=== PATIENT | female | born 1955 | race Caucasian/White ===

== ENCOUNTER → 2019-08-12 12:43 | Outpatient (BNVA) | payer MEDICARE, SELFPAY | PROVIDERS: Family Provider Family Medicine; PCP Family Medicine; Visit Provider Nurse Practitioner Psychiatric/Mental Health | DX: F33.2 Major depressive disorder, recurrent severe without psychotic features (principal); F41.1 Generalized anxiety disorder; M79.7 Fibromyalgia | CPT/HCPCS: 99213 ==

== ENCOUNTER 2019-08-26 16:17 | Emergency (ER) | payer MEDICARE, SELFPAY ==
[2019-08-26 17:01] VITALS: BP 156/86; PULSE 63; RESP 16; TEMP 36.5; O2SAT 98; BMI 32.4
--- NOTE | 2019-08-26 17:07 | PC.NURSE ---
Pt seated in waiting area at this time. Will continue to monitor.
[2019-08-26 19:48] LABS: Basophils # 0.1 10^3/uL (0.0-0.1); Basophils % 0.7 %; Eosinophils # 0.3 10^3/uL (0.0-0.8); Eosinophils % 3.3 %; Hematocrit 45.8 % (37.0-47.0); Hemoglobin 14.7 g/dL (11.5-15.3); Lymphocytes # 2.3 10^3/uL (0.8-4.8); Mean Corpuscular HGB Conc 32.1 g/dL (30.0-36.0); Mean Corpuscular Hemoglobin 26.6 pg (28.0-34.0); Monocytes # 0.5 10^3/uL (0.2-0.9); Monocytes % 6.4 %; Neutrophils # 4.4 10^3/uL (1.8-7.7); Neutrophils % 58.3 %; Nucleated Red Blood Cells % 0 %; Platelet Count 287 10^3/cmm (130-400); Red Blood Count 5.52 10^6/uL (4.1-5.3); Red Cell Distribution Width 12.7 % (12.1-15.1); White Blood Count 7.5 10^3/uL (4.0-10.0)
--- NOTE | 2019-08-26 19:55 | W.ED.GENADLT ---
HPI - General Adult General: Chief complaint: General Medical Stated complaint: multiple complaints Time Seen by Provider: 08/26/19 19:45 History of Present Illness: HPI narrative: Patient is a 64-year-old female who comes in the ED after having an episode today where her legs gave out and she fell to the floor. She denies any pain or injury after fall but for an hour after the fall she was sweating profusely. Denies any head trauma or loss of consciousness. Stated she had a little bit of numbness in her left leg. Denies any chest pain or shortness of breath. Currently here in the ED she is having no symptoms. Denies vision changes, Headache or weakness to extremities. She does say the last 2 days when she closes her eyes she described feeling like she is bobbing on the ocean. Denies abdominal pain, nausea, vomiting, bladder symptoms, or blood in stool or blood in the urine. She does state she chronically deals with diarrhea and constipation. Review of Systems General: Reports: 10 or more systems reviewed and unremarkable except in HPI and below PFSH ED PFSH: Statuses (acute, chronic, etc) shown below reflect problem list status as previously entered and may not be historically accurate Medical History Fibromyalgia (Acute) Generalized anxiety disorder (Acute) History of fibromyalgia (Acute) History of uterine cancer (Acute) Major depressive disorder, recurrent severe without psychotic features (Acute) Surgical History History of hysterectomy (Acute) Social History Smoking and tobacco status: former smoker Physical Exam Const: COMMON NORMALS: oriented x3 HENMT: COMMON NORMALS: normocephalic HEAD & SCALP: normocephalic MOUTH: oral and palatal mucosa normal THROAT: posterior oropharynx normal and uvula midline Neck/C-Spine: COMMON NORMALS: supple GENERAL: Yes normal visual inspection Resp: COMMON NORMALS: normal respiratory effort, no retractions, no use of accessory muscles and clear to auscultation bilaterally AUSCULTATION: clear to auscultation bilaterally Cardio: COMMON NORMALS: regular rate, regular rhythm, S1 normal heart sound, S2 normal heart sound, no gallops, no clicks, no murmurs and peripheral pulses 2+ throughout RATE: regular rate RHYTHM: regular rhythm HEART SOUNDS: S1 normal and S2 normal PERIPHERAL PULSES: pulses 2+ throughout GI: COMMON NORMALS: normal to inspection, nondistended, normoactive bowel sounds, soft to palpation, non-tender and no masses PALPATION: Yes soft : COMMON NORMALS: Yes no CVA tenderness BLADDER/KIDNEY EXAM: Yes no CVA tenderness Back/Pelvis: COMMON NORMALS: no CVA tenderness Extremity: COMMON NORMALS: normal to inspection Neuro: COMMON NORMALS: oriented x3, CN's II-XII intact bilaterally, moves all extremities, no focal motor deficits and no sensory deficits noted SENSORY EXAM: Yes extremities (intact) MOTOR EXAM: strength 5/5 throughout Skin: COMMON NORMALS: no rashes or lesions noted GENERAL SKIN EXAM: no rashes or lesions noted Course Vital Signs: Vital signs: Vital Signs Temperature 97.7 F 08/26/19 17:01 Pulse Rate 59 L 08/27/19 01:38 Respiratory Rate 16 08/27/19 01:38 Blood Pressure 172/67 08/27/19 01:38 Pulse Oximetry 94 08/27/19 01:38 1 I was in the room patient had a blood pressure of 168/95. This blood pressure was taken around 12 am. [facility] - General Adult Lab Data: Attestation: I reviewed the patient's lab results. Labs: Lab Results 08/26/19 08/26/19 08/26/19 Range/Units 19:25 19:25 19:25 WBC 7.5 (4.0-10.0) 10^3/ uL RBC 5.52 H (4.1-5.3) 10^6/u L Hgb 14.7 (11.5-15.3) g/dL Hct 45.8 (37.0-47.0) % MCV 83.0 (81-99) fL MCH 26.6 L (28.0-34.0) pg MCHC 32.1 (30.0-36.0) g/dL RDW 12.7 (12.1-15.1) % Plt Count 287 (130-400) 10^3/c mm MPV 11.0 H (7.4-10.4) fL Neut % (Auto) 58.3 % Lymph % (Auto) 31.0 % [place] % (Auto) 6.4 % Eos % (Auto) 3.3 % Baso % (Auto) 0.7 % Neut # (Auto) 4.4 (1.8-7.7) 10^3/u L Lymph # (Auto) 2.3 (0.8-4.8) 10^3/u L [place] # (Auto) 0.5 (0.2-0.9) 10^3/u L Eos # (Auto) 0.3 (0.0-0.8) 10^3/u L Baso # (Auto) 0.1 (0.0-0.1) 10^3/u L Nucleated RBC % (a uto) 0 % Nucleated RBCs # 0.0 /100WBC Sodium 140 (136-145) mmol/L Potassium 4.3 (3.5-5.1) mmol/L Chloride 102 (98-107) mmol/L Carbon Dioxide 28 (22-29) mmol/L Anion Gap 14.3 (5-19) BUN 12 (8-23) mg/dL Creatinine 1.2 H (0.5-0.9) mg/dL GFR Calculation 45.4 L (90-130) mL/min Glucose 133 H (74-106) mg/dL Calcium 10.3 (8.5-10.5) mg/dL Total Bilirubin 0.2 (0.15-1.2) mg/dL AST 27 (0-32) U/L ALT 34 H (0-33) U/L Alkaline Phosphata se 105 (35-105) IU/L Troponin T Baselin e 9 (0-10) ng/mL Troponin T 120 Min [place] (0-10) ng/mL Delta Troponin T (0-10) ABS# Total Protein 7.6 (6.6-8.7) g/dL Albumin 4.6 (3.5-5.2) g/dL Globulin 3.0 (1.3-4.6) g/dL Urine Color (Yellow) Urine Appearance (CLEAR) Urine pH (5-7) Ur Specific Gravit y (1.005-1.030) Urine Protein (Negative) Urine Glucose (UA) (Normal) Urine Ketones (Negative) Urine Occult Blood (Negative) Urine Nitrate (Negative) Urine Bilirubin (NEGATIVE) Prot Sulfosalicyli c Acd Urine Urobilinogen (Negative) mg/dL Ur Leukocyte Viki ase (Negative) 08/26/19 08/26/19 Range/Units 22:54 23:50 WBC (4.0-10.0) 10^3/ uL RBC (4.1-5.3) 10^6/u L Hgb (11.5-15.3) g/dL Hct (37.0-47.0) % MCV (81-99) fL MCH (28.0-34.0) pg MCHC (30.0-36.0) g/dL RDW (12.1-15.1) % Plt Count (130-400) 10^3/c mm MPV (7.4-10.4) fL Neut % (Auto) % Lymph % (Auto) % [place] % (Auto) % Eos % (Auto) % Baso % (Auto) % Neut # (Auto) (1.8-7.7) 10^3/u L Lymph # (Auto) (0.8-4.8) 10^3/u L [place] # (Auto) (0.2-0.9) 10^3/u L Eos # (Auto) (0.0-0.8) 10^3/u L Baso # (Auto) (0.0-0.1) 10^3/u L Nucleated RBC % (a uto) % Nucleated RBCs # /100WBC Sodium (136-145) mmol/L Potassium (3.5-5.1) mmol/L Chloride (98-107) mmol/L Carbon Dioxide (22-29) mmol/L Anion Gap (5-19) BUN (8-23) mg/dL Creatinine (0.5-0.9) mg/dL GFR Calculation (90-130) mL/min Glucose (74-106) mg/dL Calcium (8.5-10.5) mg/dL Total Bilirubin (0.15-1.2) mg/dL AST (0-32) U/L ALT (0-33) U/L Alkaline Phosphata se (35-105) IU/L Troponin T Baselin e (0-10) ng/mL Troponin T 120 Min [place] 7.84 (0-10) ng/mL Delta Troponin T -1.16 L (0-10) ABS# Total Protein (6.6-8.7) g/dL Albumin (3.5-5.2) g/dL Globulin (1.3-4.6) g/dL Urine Color Yellow (Yellow) Urine Appearance Clear (CLEAR) Urine pH 7 (5-7) Ur Specific Gravit y 1.010 (1.005-1.030) Urine Protein Neg (Negative) Urine Glucose (UA) Norm (Normal) Urine Ketones Negative (Negative) Urine Occult Blood Neg (Negative) Urine Nitrate Negative (Negative) Urine Bilirubin Neg (NEGATIVE) Prot Sulfosalicyli c Acd Negative Urine Urobilinogen Norm (Negative) mg/dL Ur Leukocyte Viki ase Negative (Negative) Imaging Data^: CT Head: Attestation: I personally reviewed and interpreted this imaging study as follows: Radiologist's impression: [address] [address] [address] Scan Report Signed Patient: Oneyda Carter Unit #: [id number] : 1955 Age/Sex: 64 / F ADM Date: 08/26/19 Loc: ER Room/Bed: Attending Dr: Ordering Provider/Ordering MD: Tahir Jiang Date of Service: 08/26/19 Procedure(s): CT head wo con* [id number] Accession Number(s): [id number] Report Number: [id number] PROCEDURE INFORMATION: Exam: CT Head Without Contrast Exam date and time: 08/26/2019 8:36 PM Age: 64 years old Clinical indication: Dizziness; Additional info: [place] BP with numbness TECHNIQUE: Imaging protocol: Computed tomography of the head without contrast. Total DLP: 753.53 mGy-cm Radiation optimization: All CT scans at this facility use at least one of these dose optimization techniques: automated exposure control; mA and/or kV adjustment per patient size (includes targeted exams where dose is matched to clinical indication); or iterative reconstruction. COMPARISON: CT head wo con* [id number] 05/04/2015 12:47 PM FINDINGS: Brain: Normal. No hemorrhage. Unremarkable white matter. No mass effect. Midline shift: There is no shift of midline structures. Ventricles: Normal. No ventriculomegaly. Bones/joints: Unremarkable. No acute fracture. Sinuses: Visualized sinuses are unremarkable. No fluid levels. Mastoid air cells: Visualized mastoid air cells are well aerated. Soft tissues: There is some focal scarring in the occipital scalp. CT/CT head wo con* [id number] IMPRESSION: No acute intracranial abnormality. Radiation Dose CTDIVOL = (mGy): DLP = 753.53 (mGy-cm) Dictated By: Nate Fernandez Signed By: Nate Fernandez Signed Date/Time: 08/26/192112 DD/ 11 EKG Data^: EKG 1: Attestation: I personally reviewed and interpreted this EKG as follows: EKG interpretation date: 08/26/19 Interpretation: Sinus bradycardia, bpm of [address] elevation or depression, P waves present Computer generated interpretation: Head CT 08/26/19 20:33 IMPRESSION: No acute intracranial abnormality. Radiation Dose CTDIVOL = (mGy): DLP = 753.53 (mGy-cm) EKG 2: Attestation: I personally reviewed and interpreted this EKG as follows: EKG interpretation date: 08/26/19 Interpretation: Sinus rhythm, bpm of 62, no ST elevation or depression, P waves present. Computer generated interpretation: Head CT 08/26/19 20:33 IMPRESSION: No acute intracranial abnormality. Radiation Dose CTDIVOL = (mGy): DLP = 753.53 (mGy-cm) Discharge Plan Discharge Patient Disposition: Home, Self-Care Clinical Impression: Hypertensive urgency Condition: Stable Prescriptions: No Action aspirin 81 mg tablet,chewable 81 mg PO ONCE RF: 0 albuterol sulfate [Ventolin HFA] 90 mcg/actuation HFA aerosol inhaler 2 puff INHALATION BID PRNRF: 0 atenolol 25 mg tablet 12.5 mg PO BID RF: 0 fluoxetine [Prozac] 40 mg capsule 80 mg PO QAM Qty: 30 RF: 3 hydroxyzine HCl 50 mg tablet 50 mg PO BID PRN (Reason: anxiety) Qty: 60 RF: 3 melatonin 3 mg capsule 6 mg PO .bedtime Qty: 60 RF: 3 Discharge Orders: Discharge Order (Routine); Ordered 08/27/19 Ordered By: Tahir Jiang Referrals: Mallory Manley DO [Primary Care Provider] - Discharge Diet: Regular Discharge Activity: Resume usual activity Activity Restrictions/Additional Instructions: Follow-up with your PCP within the next 7 days for reevaluation. Discuss blood pressure management with PCP. Return to ED if you have any symptoms of high blood pressure and numbness/Tingling or weakness to extremities. Also return to the ED if you have any episodes of profuse sweating and shortness of breath and/or chest pain. Discharge Date/Time: 08/27/19 01:41 Coding Level of Care Code ED Drill Sergeant for Anshu Galdamez
[2019-08-26 20:07] VITALS: BP 200/83; PULSE 61; RESP 14; O2SAT 98
[2019-08-26 20:12] LABS: Alanine Aminotransferase 34 U/L (0-33); Albumin Level 4.6 g/dL (3.5-5.2); Alkaline Phosphatase 105 IU/L (35-105); Anion Gap 14.3 (5-19); Aspartate Amino Transferase 27 U/L (0-32); Blood Urea Nitrogen 12 mg/dL (8-23); Calcium 10.3 mg/dL (8.5-10.5); Carbon Dioxide 28 mmol/L (22-29); Chloride 102 mmol/L (98-107); Glomerular Filtration Rate 45.4 mL/min (90-130); Glucose 133 mg/dL (74-106); Potassium 4.3 mmol/L (3.5-5.1); Sodium 140 mmol/L (136-145); Total Bilirubin 0.2 mg/dL (0.15-1.2); Total Protein 7.6 g/dL (6.6-8.7)
--- NOTE | 2019-08-26 20:12 | PC.NURSE ---
Patient Assessment Patient reports her legs becoming weak and falling this afternoon. Patient states she suddenly felt shaky and felt like her heart was beating fast but denies any kind of chest pain or other symptoms. Patient reports some pain in her legs and feet at this time. Patient denies being a known diabetic at this time. Patient denies any other weakness, dizziness, headaches or tingling at this time. Patient facial symmetry. Patient denies taking any daily blood pressure medication. Patient reports having frequent issues with left ear.
--- NOTE | 2019-08-26 20:33 | CTR_ITS ---
PROCEDURE INFORMATION: Exam: CT Head Without Contrast Exam date and time: 08/26/2019 8:36 PM Age: 64 years old Clinical indication: Dizziness; Additional info: [place] BP with numbness TECHNIQUE: Imaging protocol: Computed tomography of the head without contrast. Total DLP: 753.53 mGy-cm Radiation optimization: All CT scans at this facility use at least one of these dose optimization techniques: automated exposure control; mA and/or kV adjustment per patient size (includes targeted exams where dose is matched to clinical indication); or iterative reconstruction. COMPARISON: CT head wo con* [id number] 05/04/2015 12:47 PM FINDINGS: Brain: Normal. No hemorrhage. Unremarkable white matter. No mass effect. Midline shift: There is no shift of midline structures. Ventricles: Normal. No ventriculomegaly. Bones/joints: Unremarkable. No acute fracture. Sinuses: Visualized sinuses are unremarkable. No fluid levels. Mastoid air cells: Visualized mastoid air cells are well aerated. Soft tissues: There is some focal scarring in the occipital scalp. CT/CT head wo con* [id number] IMPRESSION: No acute intracranial abnormality. Radiation Dose CTDIVOL = (mGy): DLP = 753.53 (mGy-cm)
--- NOTE | 2019-08-26 20:53 | ECG_ITS ---
Measurements Intervals [place] Rate: 58 P: 30 MT: 181 QRS: 61 QRSD: 78 T: 51 QT: 465 QTc: 458 SINUS BRADYCARDIA No previous ECG available for comparison Electronically Signed On 08-27-2019 20:11:33 DATA ENTRY ANALYST by Michelle Crowder M.D. [id number]
[2019-08-26 21:52] LABS: Troponin(5th) Baseline 9 ng/mL (0-10)
[2019-08-26] MEDS: sodium chloride 0.9% 1,000 ML 999 ML IV (22:10)
--- NOTE | 2019-08-26 22:53 | ECG_ITS ---
Measurements Intervals [place] Rate: 62 P: 52 IN: 177 QRS: 62 QRSD: 81 T: 52 QT: 453 QTc: 461 SINUS RHYTHM No previous ECG available for comparison Electronically Signed On 08-27-2019 20:15:54 PHYSIOTHERAPY ASSISTANT by Michelle Crowder M.D. [id number]
[2019-08-26 23:18] LABS: Troponin 5 2HR 7.84 ng/mL (0-10)
[2019-08-26 23:52] LABS: Troponin 5 2HR Delta -1.16 ABS# (0-10)
[2019-08-27 00:55] LABS: Bilirubin Urine Neg (NEGATIVE); Blood Urine Neg (Negative); Glucose Urine UA Norm (Normal); Ketones Urine Negative (Negative); Leukocyte Esterase Urine Negative (Negative); Nitrate Urine Negative (Negative); Protein Urine Neg (Negative); Sulfosalicylic Acid Urine Negative; Urine Appearance Clear (CLEAR); Urine Color Yellow (Yellow); Urobilinogen Urine Norm (Negative); pH Urine 7 (5-7)
[2019-08-27 00:57] LABS: Add Urine Culture? No
[2019-08-27 01:38] VITALS: BP 172/67; PULSE 59; RESP 16; O2SAT 94
== END 2019-08-27 01:41 | disposition home or self-care (01) ==
PROVIDERS: Family Medicine; Emergency Provider Physician Assistant; Family Provider Family Medicine; PCP Family Medicine
DX: I16.0 Hypertensive urgency (principal); Z87.891 Personal history of nicotine dependence
CPT/HCPCS: 36415; 70450; 80053; 81001; 84484; 85025; 93005; 96360; 99282; 99283; J7030

== ENCOUNTER → 2019-09-10 13:57 | Outpatient (BNVA) | payer MEDICARE, SELFPAY | PROVIDERS: Family Provider Family Medicine; PCP Family Medicine; Visit Provider Family Medicine | DX: I10 Essential (primary) hypertension (principal); R73.9 Hyperglycemia, unspecified | CPT/HCPCS: 80053; 80061; 82044; 83036; 84443; 85025 ==

== ENCOUNTER → 2019-10-09 13:27 | Outpatient (BNVA) | payer MEDICARE, SELFPAY | PROVIDERS: Family Provider Family Medicine; PCP Family Medicine; Visit Provider Family Medicine | DX: E78.5 Hyperlipidemia, unspecified (principal); I10 Essential (primary) hypertension | CPT/HCPCS: 80053 ==

== ENCOUNTER → 2019-11-18 08:18 | Outpatient (BNVA) | payer MEDICARE, SELFPAY | PROVIDERS: Family Provider Family Medicine; PCP Family Medicine; Visit Provider Nurse Practitioner Psychiatric/Mental Health | DX: F33.2 Major depressive disorder, recurrent severe without psychotic features (principal); F41.1 Generalized anxiety disorder; M79.7 Fibromyalgia | CPT/HCPCS: 99213 ==

== ENCOUNTER → 2020-02-10 07:43 | Outpatient (BNVA) | payer MEDICARE, SELFPAY | PROVIDERS: Family Provider Family Medicine; PCP Family Medicine; Visit Provider Nurse Practitioner Psychiatric/Mental Health | DX: F33.2 Major depressive disorder, recurrent severe without psychotic features (principal); F41.1 Generalized anxiety disorder; M79.7 Fibromyalgia; Z79.899 Other long term (current) drug therapy | CPT/HCPCS: 99213 ==

== ENCOUNTER → 2020-02-11 11:29 | Outpatient (BNVA) | payer MEDICARE, SELFPAY | PROVIDERS: Family Provider Family Medicine; PCP Family Medicine; Visit Provider Family Medicine | DX: I10 Essential (primary) hypertension (principal); R73.03 Prediabetes | CPT/HCPCS: 80053; 83036 ==

== ENCOUNTER 2020-07-13 10:59 | Outpatient (CLI) | payer MEDICARE, SELFPAY ==
--- NOTE | 2020-07-13 11:21 | US_ITS ---
WS: [id number] RENAL ULTRASOUND HISTORY: CHRONIC KIDNEY DZ STAGE 3 COMPARISON: None available. TECHNIQUE: 2-D and color Doppler imaging of the kidney submitted. Right kidney: 9.4 cm x 4.6 cm x 4.5 cm. Normal echogenicity with no hydronephrosis or mass. Left kidney: 10.4 cm x 5.3 cm x 4.2 cm. Normal echogenicity with no hydronephrosis or mass. Aorta: Normal. Urinary Bladder: Normal distention. US/US renal BI* [id number] IMPRESSION: Normal renal ultrasound.
== END 2020-07-13 11:00 | disposition home or self-care (01) ==
PROVIDERS: PCP Family Medicine; Visit Provider Internal Medicine Nephrology
DX: N18.31 Chronic kidney disease, stage 3a (principal)
CPT/HCPCS: 76770

== ENCOUNTER → 2020-09-17 14:59 | Outpatient (BNVA) | payer MEDICARE, SELFPAY | PROVIDERS: PCP Family Medicine; Visit Provider Family Medicine | DX: N18.30 Chronic kidney disease, stage 3 unspecified (principal); I10 Essential (primary) hypertension; E78.5 Hyperlipidemia, unspecified | CPT/HCPCS: 80069; 82043; 85007; 85027 ==

== ENCOUNTER → 2020-12-29 08:45 | Outpatient (BNVA) | payer MEDICARE, SELFPAY | PROVIDERS: PCP Family Medicine; Visit Provider Nurse Practitioner Psychiatric/Mental Health | DX: F33.2 Major depressive disorder, recurrent severe without psychotic features (principal); F41.1 Generalized anxiety disorder; M79.7 Fibromyalgia | CPT/HCPCS: 99213 ==

== ENCOUNTER → 2021-05-31 14:41 | Outpatient (BNVA) | payer MEDICARE, SELFPAY | PROVIDERS: PCP Family Medicine; Visit Provider Family Medicine | DX: E78.5 Hyperlipidemia, unspecified (principal); I10 Essential (primary) hypertension; R73.03 Prediabetes | CPT/HCPCS: 80053; 80061; 82043; 83036; 85025 ==

== ENCOUNTER → 2021-06-24 12:56 | Outpatient (BNVA) | payer MEDICARE, SELFPAY | PROVIDERS: PCP Family Medicine; Visit Provider Nurse Practitioner Psychiatric/Mental Health | DX: F33.2 Major depressive disorder, recurrent severe without psychotic features (principal); F41.1 Generalized anxiety disorder; M79.7 Fibromyalgia | CPT/HCPCS: 99214 ==

== ENCOUNTER → 2021-11-22 13:45 | Outpatient (BNVA) | payer MEDICARE, SELFPAY | PROVIDERS: PCP Family Medicine; Visit Provider Nurse Practitioner Psychiatric/Mental Health | DX: F33.2 Major depressive disorder, recurrent severe without psychotic features (principal); F41.1 Generalized anxiety disorder; M79.7 Fibromyalgia | CPT/HCPCS: 99214 ==

== ENCOUNTER 2024-02-04 19:12 | Emergency (ER) | payer MEDICARE, SELFPAY ==
[2024-02-04 19:21] VITALS: BP 154/80; PULSE 85; RESP 16; TEMP 37.4; O2SAT 95; BMI 29.9
[2024-02-04 19:33] VITALS: BP 150/69; PULSE 83; RESP 18; O2SAT 98
[2024-02-04 19:56] LABS: SARS Covid-2 Antigen negative (Negative)
--- NOTE | 2024-02-04 19:58 | W.ED.FEVER ---
HPI - Fever General: Chief Complaint: Fever Stated Complaint: Body aches, Headaces,Fever Time Seen by Provider: 02/04/24 19:28 History of Present Illness: 69-year-old female with a headache, fever, aches and chills for the last day or so. She has had a cough as well. No sore throat. No chest pain. No swelling of the legs. No frequency or dysuria. Associated symptoms: Deny abdominal pain, chest pain, confusion, diarrhea, nausea or vomiting Review of Systems Eyes: Denies: change in vision Card: Denies: chest pain or palpitations Resp: Denies: dyspnea or wheezing GI: Denies: abdominal pain, nausea, vomiting, diarrhea or hematochezia : Denies: difficulty voiding Skin/Breast: Denies: rash Neuro: Denies: weakness in extremities, dizziness or confusion PFSH ED PFSH: Medical History (Updated 02/05/24 @ 00:25 by Kelechi Hawthorne DO) Dyslipidemia Benign essential HTN COPD (chronic obstructive pulmonary disease) Fibromyalgia Generalized anxiety disorder Major depressive disorder, recurrent severe without psychotic features History of fibromyalgia History of uterine cancer Surgical History History of hysterectomy Family History Other CAD (coronary artery disease) Hypertension Social History Smoking and tobacco/nicotine status: never used tobacco/nicotine Alcohol intake: never Substance/Drug Use: never Physical Exam Const: COMMON NORMALS: no acute distress GENERAL APPEARANCE: cooperative and ill appearing (Mildly); not frail appearing HENMT: COMMON NORMALS: normocephalic, atraumatic and Normal external nose present HEAD & SCALP: normocephalic and atraumatic FACE & SINUS: normal facial exam and face symmetric NOSE: Normal external nose present Eye: COMMON NORMALS: Equal, round and reactive pupils present and EOMs intact bilaterally PUPIL: Yes Equal, round and reactive pupils present Neck/C-Spine: GENERAL: Yes trachea midline Chest: CHEST: Yes Symmetrical chest wall rise Resp: COMMON NORMALS: normal respiratory effort, No retractions, No use of accessory muscles and clear to auscultation bilaterally AUSCULTATION: clear to auscultation bilaterally Cardio: COMMON NORMALS: regular rate and regular rhythm RATE: regular rate RHYTHM: regular rhythm GI: COMMON NORMALS: Normal to inspection, nondistended, normoactive bowel sounds present Extremity: COMMON NORMALS: no pedal edema Neuro: RACHNA COMA SCALE: document GCS findings [place] coma scale eye opening: Spontaneous Rachna coma scale verbal response: Orientated [place] coma scale motor response: Obey commands Rachna coma scale total score: 15 SENSORY EXAM: Yes extremities (intact) Psych: COMMON NORMALS: speech normal SPEECH: Yes normal speech Skin: COMMON NORMALS: no rashes or lesions noted GENERAL SKIN EXAM: no rashes or lesions noted Course Vital Signs: Vital signs: Vital Signs Temperature 99.3 F 02/04/24 19:21 Pulse Rate 68 02/05/24 01:41 Respiratory Rate 16 02/05/24 01:41 Blood Pressure 130/57 02/05/24 01:41 Pulse Oximetry 94 02/05/24 01:41 Oxygen Delivery Me thod Nasal Cannula 02/05/24 00:00 Oxygen Flow Rate 3 02/05/24 00:00 MDM - Fever Medical Decision Making 69-year-old female presenting with a temperature. 99.3. She is slightly hypertensive. Other vital signs are stable. CBC is normal. BMP is normal. Lactic acid is normal. Chest x-ray is negative. She is negative for COVID-19. Urinalysis is pending. Head CT, is ordered, as she is a bit unsteady on her feet after getting up despite fluid infusion. Head CT is negative. Urinalysis reveals a urinary tract infection that is significant. Likely her source. She is given 500 mg of IV Levaquin. Her headache is improving after hydration. Temperature is staying down. She was counseled on diagnosis. She will be allowed discharge after antibiotic infusion. Lab Data 02/04/24 19:54 02/04/24 19:54 Radiology Impressions Chest X-Ray 02/04/24 21:08 IMPRESSION: 1. No acute cardiopulmonary abnormality. Head CT 02/04/24 22:25 IMPRESSION: 1. No acute intracranial abnormality. Laboratory Results WBC 6.59 10^3/uL (3.29-11.43) 02/04/24 19:54 RBC 5.46 10^6/uL (3.85-5.65) 02/04/24 19:54 Hgb 15.40 g/dL (11.27-16.99) 02/04/24 19:54 Hct 46.7 % (36-47) 02/04/24 19:54 MCV 85.5 fl (85-98) 02/04/24 19:54 MCH 28.2 pg (27-33) 02/04/24 19:54 MCHC 33.0 g/dL (30-55) 02/04/24 19:54 RDW 12.3 % (12.1-15.1) 02/04/24 19:54 Plt Count 288 10^3/cmm (157-399) 02/04/24 19:54 MPV 11.1 fL (7.4-10.4) H 02/04/24 19:54 Neut % (Auto) 72.1 % 02/04/24 19:54 Lymph % (Auto) 12.7 % 02/04/24 19:54 [place] % (Auto) 8.3 % 02/04/24 19:54 Eos % (Auto) 5.8 % 02/04/24 19:54 Baso % (Auto) 0.5 % 02/04/24 19:54 Neut # (Auto) 4.75 10^3/uL (1.8-7.7) 02/04/24 19:54 Lymph # (Auto) 0.8 10^3/uL (0.8-4.8) 02/04/24 19:54 [place] # (Auto) 0.6 10^3/uL (0.2-0.9) 02/04/24 19:54 Eos # (Auto) 0.4 10^3/uL (0.0-0.8) 02/04/24 19:54 Baso # (Auto) 0.0 10^3/uL (0.0-0.1) 02/04/24 19:54 Nucleated RBC % (auto) 0 % 02/04/24 19:54 Nucleated RBCs # 0.0 /100WBC 02/04/24 19:54 Sodium 138 mmol/L (136-145) 02/04/24 19:54 Potassium 3.9 mmol/L (3.5-5.1) 02/04/24 19:54 Chloride 103 mmol/L (98-107) 02/04/24 19:54 Carbon Dioxide 24 mmol/L (22-29) 02/04/24 19:54 Anion Gap 14.9 (5-19) 02/04/24 19:54 BUN 15 mg/dL (8-23) 02/04/24 19:54 Creatinine 1.1 mg/dL (0.5-0.9) H 02/04/24 19:54 GFR Calculation 49.4 mL/min (90-130) L 02/04/24 19:54 Glucose 123 mg/dL (65-115) H 02/04/24 19:54 Calculated Osmolality 288 mOsm/kg (285-295) 02/04/24 19:54 Lactic Acid 0.8 mmol/L (0.5-2.2) 02/04/24 19:54 Calcium 9.3 mg/dL (8.5-10.5) 02/04/24 19:54 Total Bilirubin 0.5 mg/dL (0.15-1.2) 02/04/24 19:54 AST 22 U/L (0-32) 02/04/24 19:54 ALT 34 U/L (0-33) H 02/04/24 19:54 Alkaline Phosphatase 108 U/L (35-105) H 02/04/24 19:54 Total Protein 7.1 g/dL (6.6-8.7) 02/04/24 19:54 Albumin 4.1 g/dL (3.5-5.2) 02/04/24 19:54 Globulin 3.0 g/dL (1.3-4.6) 02/04/24 19:54 Urine Color Yellow (Yellow) 02/04/24 22:28 Urine Appearance Clear (CLEAR) 02/04/24 22:28 Urine pH 7 (5-7) 02/04/24 22:28 Ur Specific [place] 1.005 (1.005-1.030) 02/04/24 22:28 Urine Protein Neg (Negative) 02/04/24 22:28 Urine Glucose (UA) Norm (Normal) 02/04/24 22:28 Urine Ketones Negative (Negative) 02/04/24 22:28 Urine Blood Neg (Negative) 02/04/24 22:28 Urine Nitrate Negative (Negative) 02/04/24 22:28 Urine Bilirubin Neg (Negative) 02/04/24 22:28 Urine Urobilinogen Neg mg/dL (Negative) 02/04/24 22:28 Ur Leukocyte Esterase 2+ (Negative) H 02/04/24 22:28 Urine RBC 0-4 /hpf (0-2) H 02/04/24 22:28 Urine WBC 15-25 /hpf (0-5) H 02/04/24 22:28 Ur Squamous Epith Cells 5-10 /hpf (0-5) H 02/04/24 22:28 Amorphous Sediment Not Reportable 02/04/24 22:28 Urine Bacteria 1+ /hpf (NONE) H 02/04/24 22:28 SARS-CoV-2 Ag (Rapid) negative (Negative) 02/04/24 19:31 All radiology interpretation(s) finalized by discharge Discharge Plan Discharge Patient Disposition: Home Clinical Impression: Urinary tract infection, Headache Condition: Stable Prescriptions: New levofloxacin 500 mg tablet 500 mg PO DAILY 7 Days Qty: 7 0RF No Action aspirin 81 mg tablet,chewable 81 mg PO ONCE albuterol sulfate [Ventolin HFA] 90 mcg/actuation HFA aerosol inhaler 2 puff INHALATION BID PRN (Reason: shortness of breath or wheezing) Qty: 8.5 3RF fluoxetine [Prozac] 40 mg capsule 80 mg PO QAM Qty: 180 2RF Rx Instructions: Take two capsules every morning diazepam [Valium] 5 mg tablet 2.5 mg PO BID PRN (Reason: anxiety) Qty: 30 2RF Rx Instructions: May take half tablet twice per day as needed for anxiety Discharge Orders: Discharge ED (Routine); Ordered 02/05/24 Ordered By: Kelechi Hawthorne Referrals: Cristal Kramer DO [Primary Care Provider] - 1-3 days Patient Instructions: Acute Headache (ED), Urinary Tract Infection in Older Adults (ED), Opioid Safety, Pain Management Activity Restrictions/Additional Instructions: Return for worsening headache despite treatment, worsening mental status, vomiting liquids or medications, fever despite 2-3 doses of antibiotics, any other concerning symptoms. Follow-up with your doctor this week. Stay hydrated. Antibiotics as directed. Coding Level of Care Code ED Edi Manager for Anshu Galdamez
[2024-02-04 20:02] LABS: Basophils % 0.5 %; Eosinophils # 0.4 10^3/uL (0.0-0.8); Eosinophils % 5.8 %; Hematocrit 46.7 % (36-47); Lymphocytes # 0.8 10^3/uL (0.8-4.8); Lymphocytes % 12.7 %; Mean Corpuscular Hemoglobin 28.2 pg (27-33); Mean Corpuscular Volume 85.5 fl (85-98); Mean Platelet Volume 11.1 fL (7.4-10.4); Monocytes # 0.6 10^3/uL (0.2-0.9); Monocytes % 8.3 %; Neutrophils # 4.75 10^3/uL (1.8-7.7); Neutrophils % 72.1 %; Nucleated Red Blood Cells % 0 %; Platelet Count 288 10^3/cmm (157-399); Red Blood Count 5.46 10^6/uL (3.85-5.65); Red Cell Distribution Width 12.3 % (12.1-15.1); White Blood Count 6.59 10^3/uL (3.29-11.43)
[2024-02-04 20:20] LABS: Alanine Aminotransferase 34 U/L (0-33); Albumin Level 4.1 g/dL (3.5-5.2); Alkaline Phosphatase 108 U/L (35-105); Anion Gap 14.9 (5-19); Aspartate Amino Transferase 22 U/L (0-32); Blood Urea Nitrogen 15 mg/dL (8-23); Calcium 9.3 mg/dL (8.5-10.5); Carbon Dioxide 24 mmol/L (22-29); Chloride 103 mmol/L (98-107); Creatinine Clr Calc Pharmacy 55.3384; Glomerular Filtration Rate 49.4 mL/min (90-130); Glucose 123 mg/dL (65-115); Lactic Sepsis W/Reflex 0.8 mmol/L (0.5-2.2); Osmolality Calculated 288 mOsm/kg (285-295); Potassium 3.9 mmol/L (3.5-5.1); Sodium 138 mmol/L (136-145); Total Bilirubin 0.5 mg/dL (0.15-1.2); Total Protein 7.1 g/dL (6.6-8.7)
[2024-02-04] MEDS: sodium chloride 0.9% 1,000 ML 999 ML IV (20:34)
[2024-02-04] MEDS: ondansetron 2 mg/ML SDV 2 mL 4 MG IVP (20:36)
[2024-02-04 20:38] VITALS: RESP 16
[2024-02-04] MEDS: ketorolac 30 mg/mL INJ IVP (20:38)
[2024-02-04] MEDS: morphine 4 mg/mL SDV 1 mL IVP (20:38)
--- NOTE | 2024-02-04 21:08 | XRR_ITS ---
PROCEDURE INFORMATION: Exam: XR Chest Exam date and time: 02/04/2024 9:16 PM Age: 69 years old Clinical indication: Cough and fever; Patient HX: Fever; Cough; Chills; Additional info: Fever chills cough TECHNIQUE: Imaging protocol: Radiologic exam of the chest. Views: 1 view. COMPARISON: No relevant prior studies available. FINDINGS: Lungs: No focal consolidation. Pleural spaces: No evidence of pneumothorax. No evidence of pleural effusion. Heart/Mediastinum: Cardiomediastinal silhouette is within normal limits. Bones/joints: No evidence of acute osseous abnormality. XR/XR chest 1V portable [id number] IMPRESSION: 1. No acute cardiopulmonary abnormality.
[2024-02-04 22:25] VITALS: BP 161/72; PULSE 71; RESP 18; O2SAT 89
--- NOTE | 2024-02-04 22:25 | CTR_ITS ---
PROCEDURE INFORMATION: Exam: CT Head Without Contrast Exam date and time: 02/04/2024 10:34 PM Age: 69 years old Clinical indication: Pain; Headache; Patient HX: Occipital TONEY with fever. Hypertensive on monitor. ; Additional info: TONEY fever TECHNIQUE: Imaging protocol: Computed tomography of the head without contrast. Radiation optimization: All CT scans at this facility use at least one of these dose optimization techniques: automated exposure control; mA and/or kV adjustment per patient size (includes targeted exams where dose is matched to clinical indication); or iterative reconstruction. COMPARISON: CT head wo con* [id number] 08/26/2019 9:03 PM RADIATION DOSE METRICS: Total DLP (mGy-cm): 974.28 FINDINGS: Brain: No evidence of intra-axial or extra-axial hemorrhage. No mass effect or midline shift. [place]-white differentiation is maintained. Basilar cisterns are patent. Cerebral ventricles: No hydrocephalus. Paranasal sinuses: The visualized paranasal sinuses are well aerated. Mastoid air cells: The visualized mastoids and middle ears are clear. Bones: Calvarium is intact. No evidence of acute fracture. Soft tissues: No gross soft tissue abnormality. CT/CT head wo con* [id number] IMPRESSION: 1. No acute intracranial abnormality.
[2024-02-04] MEDS: sodium chloride 0.9% 500 ML 999 ML IV (22:47)
[2024-02-04] MEDS: metoclopramide 5 mg/mL SDV 2 mL 10 MG IVP (22:49)
--- NOTE | 2024-02-04 22:52 | ECG_ITS ---
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 Measurements Intervals [place] Rate: 64 P: 66 VT: 184 QRS: 71 QRSD: 84 T: 70 QT: 435 QTc: 452 Interpretive Statements SINUS RHYTHM Compared to ECG 08/26/2019 22:30:25 No significant changes Electronically Signed On 02-05-2024 9:45:10 CDT by Galindo Kay M.D. [id number]
[2024-02-04 22:53] VITALS: BP 131/64; PULSE 65; RESP 18; O2SAT 94
[2024-02-04 22:57] LABS: Add Urine Microscopic? YES; Bilirubin Urine Neg (Negative); Blood Urine Neg (Negative); Glucose Urine UA Norm (Normal); Ketones Urine Negative (Negative); Leukocyte Esterase Urine 2+ (Negative); Nitrate Urine Negative (Negative); Protein Urine Neg (Negative); Specific Gravity, Urine 1.005 (1.005-1.030); Urine Appearance Clear (CLEAR); Urine Color Yellow (Yellow); Urobilinogen Urine Neg (Negative); pH Urine 7 (5-7)
[2024-02-04 22:58] LABS: Bacteria Urine 1+ /hpf; RBC Urine 0-4 /hpf (0-2); WBC Urine 15-25 /hpf (0-5)
[2024-02-04 23:00] VITALS: BP 135/64; PULSE 66; O2SAT 90
[2024-02-05] VITALS: BP 138/58; PULSE 64; O2SAT 90
[2024-02-05] MEDS: levofloxacin-dextrose 5 % 500 MG/100 ML PREMIX 100 MG IV (00:19)
[2024-02-05 01:41] VITALS: BP 130/57; PULSE 68; RESP 16; O2SAT 94
== END 2024-02-05 01:41 | disposition home or self-care (01) ==
PROVIDERS: Emergency Medicine; Emergency Provider Emergency Medicine; PCP Family Medicine
DX: R51.9 Headache, unspecified (principal); N39.0 Urinary tract infection, site not specified; Z11.52 Encounter for screening for COVID-19; E78.5 Hyperlipidemia, unspecified; I10 Essential (primary) hypertension; J44.9 Chronic obstructive pulmonary disease, unspecified; Z85.42 Personal history of malignant neoplasm of other parts of uterus
CPT/HCPCS: 36415; 70450; 71045; 80053; 81001; 83605; 85025; 87040; 87426; 93005; 96361; 96365; 96375; 99285; J1885; J1956; J2270; J2405; J2765; J7030; J7040

== ENCOUNTER 2024-07-18 13:41 | Emergency (ER) | payer MEDICARE, SELFPAY ==
--- NOTE | 2024-07-18 13:46 | ECG_ITS ---
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 Measurements Intervals [place] Rate: 75 P: 39 SC: 167 QRS: 47 QRSD: 75 T: 44 QT: 411 QTc: 461 Interpretive Statements SINUS RHYTHM Compared to ECG 02/04/2024 22:52:07 No significant changes Electronically Signed On 07-19-2024 18:32:25 SLIDE FASTENERS INSPECTOR by Galindo Kay M.D. [id number]
[2024-07-18 13:49] VITALS: BP 154/70; PULSE 84; RESP 18; TEMP 36.7; O2SAT 100; BMI 29.7
--- NOTE | 2024-07-18 13:49 | XRR_ITS ---
PROCEDURE INFORMATION: Exam: XR Chest Exam date and time: 07/18/2024 1:59 PM Age: 69 years old Clinical indication: Shortness of breath; Additional info: SOB TECHNIQUE: Imaging protocol: Radiologic exam of the chest. Views: 1 view. COMPARISON: CR (CHEST, ) 02/04/2024 9:16 PM FINDINGS: Lungs: Unremarkable. No consolidation. Pleural spaces: Unremarkable. No pleural effusion. No pneumothorax. Heart/Mediastinum: Unremarkable. No cardiomegaly. Bones/joints: Unremarkable. XR/XR chest 1V portable [id number] IMPRESSION: No acute findings.
[2024-07-18 13:56] VITALS: BP 154/70; PULSE 84; RESP 18; TEMP 36.7; O2SAT 100
[2024-07-18 14:08] LABS: Basophils # 0.1 10^3/uL (0.0-0.1); Basophils % 0.5 %; Eosinophils # 0.2 10^3/uL (0.0-0.8); Eosinophils % 1.6 %; Hematocrit 44.3 % (36-47); Lymphocytes # 4.8 10^3/uL (0.8-4.8); Lymphocytes % 43.7 %; Mean Corpuscular HGB Conc 33.4 g/dL (30-55); Mean Corpuscular Hemoglobin 28.8 pg (27-33); Mean Corpuscular Volume 86.2 fl (85-98); Mean Platelet Volume 12.3 fL (7.4-10.4); Monocytes # 0.9 10^3/uL (0.2-0.9); Monocytes % 8.2 %; Neutrophils # 4.96 10^3/uL (1.8-7.7); Neutrophils % 45.5 %; Nucleated Red Blood Cells % 0 %; Platelet Count 236 10^3/cmm (157-399); Red Blood Count 5.14 10^6/uL (3.85-5.65); Red Cell Distribution Width 12.2 % (12.1-15.1); White Blood Count 10.91 10^3/uL (3.29-11.43)
[2024-07-18 14:10] VITALS: PULSE 74; RESP 16; O2SAT 99
[2024-07-18] MEDS: albuterol 2.5 mg/3 mL Neb INHALATION (14:13)
[2024-07-18] MEDS: ipratropium-albuterol 3 mL Neb INHALATION (14:13)
--- NOTE | 2024-07-18 14:13 | ED_ITS ---
HPI - SOB/Dyspnea 2 General: Chief Complaint: Shortness of Breath/Dyspnea Stated Complaint: chest pain, sob Time Seen by Provider: 07/18/24 13:42 Source: patient Mode of arrival: ambulatory Limitations: no limitations History of Present Illness: HPI Narrative: 69-year-old female states been having co ugh congestion along with some chest pain shortness of breath since last night. States she has had a history of bronchitis in the past she states that she is given a breathing treatment route and symptoms have improved states cough has been nonproductive. Associated symptoms: Reports chest pain; Deny abdominal pain, fever(s), nausea or vomiting Related Data Home Medications Medication Instructions Recorded Confirmed aspirin 81 mg chewable tablet 81 mg PO ONCE 07/26/19 07/18/24 azithromycin 250 mg tablet See Rx Instructions .Route .COMPLEX 07/18/24 07/18/24 prednisone 10 mg tablet See Rx Instructions .Route .COMPLEX 07/18/24 07/18/24 quetiapine 50 mg tablet 50 mg PO QPM 07/18/24 07/18/24 Previous Rx's Medication Instructions Recorded fluoxetine 40 mg capsule (Prozac) 80 mg (2 x 40 mg) PO QAM #180 caps 04/04/24 diazepam 2 mg tablet (Valium) 1 mg (1/2 x 2 mg) PO BID PRN 07/05/24 anxiety #30 tabs prednisone 50 mg tablet 50 mg PO DAILY #5 tabs 07/18/24 Allergies Allergy/AdvReac Type Severity Reaction Status Date / Time amoxicillin Allergy Severe ALGY-Hives Verified 07/05/24 12:49 cephalexin [From Keflex] Allergy Severe ALGY-Hives Verified 07/05/24 12:49 Penicillins Allergy Severe ALGY-Hives Verified 07/05/24 12:49 Review of Systems 2 Const: Denies: fever(s), chills, body aches or change in appetite ENMT: Denies: throat pain or dental pain Card: Reports: chest pain Resp: Reports: dyspnea and non-productive cough GI: Denies: abdominal pain, nausea, vomiting or diarrhea : Denies: dysuria Musc: Denies: neck pain or back pain Skin/Breast: Denies: rash Neuro: Denies: headache(s) PFSH ED 2 PFSH: Medical History (Updated 07/18/24 @ 15:45 by Ophelia Cheng MD) Dyslipidemia Benign essential HTN COPD (chronic obstructive pulmonary disease) Fibromyalgia Generalized anxiety disorder Major depressive disorder, recurrent severe without psychotic features History of fibromyalgia History of uterine cancer Surgical History History of hysterectomy Family History Other CAD (coronary artery disease) Hypertension Social History Smoking and tobacco/nicotine status: never used tobacco/nicotine Alcohol intake: never Substance/Drug Use: never Physical Exam 2 Const: COMMON NORMALS: patient oriented x3 and healthy appearing HENMT: COMMON NORMALS: normocephalic and atraumatic HEAD & SCALP: n ormocephalic and atraumatic Eye: COMMON NORMALS: conjunctivae normal CONJUNCTIVA: Yes conjunctivae normal Neck/C-Spine: COMMON NORMALS: full ROM and supple Chest: COMMONS NORMALS: normal inspection of the chest Resp: COMMON NORMALS: normal respiratory effort, No retractions and No use of accessory muscles EFFORT & INSPECTION: Yes audible wheezes Cardio: COMMON NORMALS: regular rate, regular rhythm and No murmurs present (Cardio) RATE: regular rate RHYTHM: regular rhythm GI: COMMON NORMALS: Normal to inspection, nondistended, normoactive bowel sounds present, Soft to palpation, non-tender and no masses PALPATION: Yes Soft to palpation Extremity: COMMON NORMALS: normal to inspection and full ROM Neuro: COMMON NORMALS: patient oriented x3, moves all extremities and no focal motor deficits Psych: COMMON NORMALS: mental status grossly normal, Normal thought process present and cooperative THOUGHT PROCESS: Normal thought process present Skin: COMMON NORMALS: no rashes or lesions noted and no wounds GENERAL SKIN EXAM: no rashes or lesions noted Course 2 Vital Signs: Vital signs: Vital Signs Temperature 98.1 F 07/18/24 13:56 Pulse Rate 73 07/18/24 15:55 Respiratory Rate 16 07/18/24 14:10 Blood Pressure 146/56 07/18/24 15:55 Pulse Oximetry 93 07/18/24 15:55 Oxygen Delivery Me thod Nasal Cannula 07/18/24 14:44 Oxygen Flow Rate 2 07/18/24 14:44 MDM - SOB/Dyspnea Medical Decision Making Patient presents here with shortness of breath she has been well-appearing here likely bronchitis she feels improved on breathing treatment steroids will start on steroids she is to follow-up with PCP and return if worsening. Medical Records I reviewed the patient's medical records. Lab Data I reviewed the patient's lab results. 07/18/24 13:55 07/18/24 13:55 Labs/Radiology: Radiology Impressions Chest X-Ray 07/18/24 13:49 IMPRESSION: No acute findings. Laboratory Results WBC 10.91 10^3/uL (3.29-11.43) 07/18/24 13:55 RBC 5.14 10^6/uL (3.85-5.65) 07/18/24 13:55 Hgb 14.80 g/dL (11.27-16.99) 07/18/24 13:55 Hct 44.3 % (36-47) 07/18/24 13:55 MCV 86.2 fl (85-98) 07/18/24 13:55 MCH 28.8 pg (27-33) 07/18/24 13:55 MCHC 33.4 g/dL (30-55) 07/18/24 13:55 RDW 12.2 % (12.1-15.1) 07/18/24 13:55 Plt Count 236 10^3/cmm (157-399) 07/18/24 13:55 MPV 12.3 fL (7.4-10.4) H 07/18/24 13:55 Neut % (Auto) 45.5 % 07/18/24 13:55 Lymph % (Auto) 43.7 % 07/18/24 13:55 [place] % (Auto) 8.2 % 07/18/24 13:55 Eos % (Auto) 1.6 % 07/18/24 13:55 Baso % (Auto) 0.5 % 07/18/24 13:55 Neut # (Auto) 4.96 10^3/uL (1.8-7.7) 07/18/24 13:55 Lymph # (Auto) 4.8 10^3/uL (0.8-4.8) 07/18/24 13:55 [place] # (Auto) 0.9 10^3/uL (0.2-0.9) 07/18/24 13:55 Eos # (Auto) 0.2 10^3/uL (0.0-0.8) 07/18/24 13:55 Baso # (Auto) 0.1 10^3/uL (0.0-0.1) 07/18/24 13:55 Nucleated RBC % (auto) 0 % 07/18/24 13:55 Nucleated RBCs # 0.0 /100WBC 07/18/24 13:55 Sodium 138 mmol/L (136-145) 07/18/24 13:55 Potassium 3.5 mmol/L (3.5-5.1) 07/18/24 13:55 Chloride 100 mmol/L (98-107) 07/18/24 13:55 Carbon Dioxide 24 mmol/L (22-29) 07/18/24 13:55 Anion Gap 17.5 (5-19) 07/18/24 13:55 BUN 18 mg/dL (8-23) 07/18/24 13:55 Creatinine 1.0 mg/dL (0.5-0.9) H 07/18/24 13:55 GFR Calculation 55.1 mL/min (90-130) L 07/18/24 13:55 Glucose 143 mg/dL (65-115) H 07/18/24 13:55 Calculated Osmolality 290 mOsm/kg (285-295) 07/18/24 13:55 Calcium 9.1 mg/dL (8.5-10.5) 07/18/24 13:55 Total Bilirubin 0.4 mg/dL (0.15-1.2) 07/18/24 13:55 AST 14 U/L (0-32) 07/18/24 13:55 ALT 16 U/L (0-33) 07/18/24 13:55 Alkaline Phosphatase 84 U/L (35-105) 07/18/24 13:55 Troponin T Baseline 7 ng/L (0-10) 07/18/24 14:24 NT-Pro-B Natriuret Pep 228 pg/mL (0-125) H 07/18/24 13:55 Total Protein 6.1 g/dL (6.6-8.7) L 07/18/24 13:55 Albumin 3.7 g/dL (3.5-5.2) 12/26/24 13:55 Globulin 2.4 g/dL (1.3-4.6) 07/18/24 13:55 Coronavirus (PCR) Negative (Negative) 07/18/24 14:25 Influenza A (PCR) Negative (Negative) 07/18/24 14:25 Influenza Type B (PCR) Negative (Negative) 07/18/24 14:25 RSV (PCR) Negative (Negative) 07/18/24 14:25 All radiology interpretation(s) finalized by discharge EKG Data EKG 1: I personally reviewed and interpreted this EKG as follows: EKG Interpretation Date: 07/18/24 EKG interpretation time: 13:46 Interpretation: nsr hr [address] elevation qrs 75 qtc 440 Discharge Plan Discharge Patient Disposition: Home Clinical Impression: Bronchitis Condition: Stable Prescriptions: New prednisone 50 mg tablet 50 mg PO DAILY Qty: 5 0RF No Action aspirin 81 mg tablet,chewable 81 mg PO ONCE diazepam [Valium] 2 mg tablet 1 mg PO BID PRN (Reason: anxiety) Qty: 30 0RF Rx Instructions: May take half tablet twice per day as needed for anxiety fluoxetine [Prozac] 40 mg capsule 80 mg PO QAM Qty: 180 2RF Rx Instructions: Take two capsules every morning prednisone 10 mg tablet See Rx Instructions .ROUTE .COMPLEX Rx Instructions: TAKE 5 TABLETS BY MOUTH ONCE DAILY FOR 3 DAYS, 4 TABLETS DAILY FOR 3 DAYS, 3 TABLETS DAILY FOR 3 DAYS, 2 TABLETS DAILY FOR 3 DAYS, 1 TABLET DAILY FOR 3 DAYS, THEN 1/2 TABLET DAILY FOR 4 DAYS. azithromycin 250 mg tablet See Rx Instructions .ROUTE .COMPLEX Rx Instructions: TAKE 2 TABLETS BY MOUTH ON DAY 1, AND THEN TAKE 1 TABLET BY MOUTH ONCE A DAY ON DAY 2 quetiapine 50 mg tablet 50 mg PO QPM Discharge Orders: Discharge ED (Routine); Ordered 07/18/24 Ordered By: Ophelia Cheng Referrals: Cristal Kramer DO [Primary Care Provider] - 4-7 days Discharge Diet: Advance as tolerated Discharge Activity: Resume usual activity Patient Instructions: Bronchitis (Acute) - Adult Coding Level of Care Code ED Press Smith Helper for Chg Rudolph
[2024-07-18] MEDS: methylPREDNISolone sod succ 125 mg/2 mL INJ IV (14:17)
[2024-07-18 14:25] VITALS: PULSE 74
[2024-07-18 14:33] LABS: Alanine Aminotransferase 16 U/L (0-33); Albumin Level 3.7 g/dL (3.5-5.2); Alkaline Phosphatase 84 U/L (35-105); Blood Urea Nitrogen 18 mg/dL (8-23); Calcium 9.1 mg/dL (8.5-10.5); Carbon Dioxide 24 mmol/L (22-29); Chloride 100 mmol/L (98-107); Creatinine Clr Calc Pharmacy 60.7182; Globulin 2.4 g/dL (1.3-4.6); Glomerular Filtration Rate 55.1 mL/min (90-130); Glucose 143 mg/dL (65-115); NT Pro B Type Natriuretic Pept 228 pg/mL (0-125); Osmolality Calculated 290 mOsm/kg (285-295); Sodium 138 mmol/L (136-145); Total Bilirubin 0.4 mg/dL (0.15-1.2); Total Protein 6.1 g/dL (6.6-8.7)
[2024-07-18 14:36] LABS: Anion Gap 17.5 (5-19); Potassium 3.5 mmol/L (3.5-5.1)
[2024-07-18 14:37] LABS: Aspartate Amino Transferase 14 U/L (0-32)
[2024-07-18 14:44] VITALS: O2SAT 96
[2024-07-18 14:52] LABS: Troponin(5th) Baseline 7 ng/L (0-10)
[2024-07-18 15:19] LABS: Covid PCR NEGATIVE (Negative); Influenza A NEGATIVE (Negative); Influenza B NEGATIVE (Negative); Respiratory Syncytial Virus Ce NEGATIVE (Negative)
[2024-07-18 15:55] VITALS: BP 146/56; PULSE 73; O2SAT 93
--- NOTE | 2024-07-18 16:12 | ECG_ITS ---
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 Measurements Intervals [place] Rate: 84 P: 52 [place]: 170 QRS: 44 QRSD: 85 T: 45 QT: 397 QTc: 470 Interpretive Statements SINUS RHYTHM POSSIBLE LEFT ATRIAL ENLARGEMENT [-0.1mV P-WAVE IN V1/V2] Compared to ECG 07/18/2024 13:46:04 No significant changes Electronically Signed On 07-19-2024 18:39:47 EMAIL MANAGER by Galindo Kay M.D. [id number]
== END 2024-07-18 15:56 | disposition home or self-care (01) ==
PROVIDERS: Emergency Provider Emergency Medicine; PCP Family Medicine
DX: J40 Bronchitis, not specified as acute or chronic (principal); Z11.52 Encounter for screening for COVID-19; J44.9 Chronic obstructive pulmonary disease, unspecified; E78.5 Hyperlipidemia, unspecified
CPT/HCPCS: 36415; 71045; 80053; 83880; 84484; 85025; 87637; 93005; 94640; 96374; 99285; J2919; J7613

== ENCOUNTER 2024-08-21 12:35 | Outpatient (CLI) | payer MEDICARE, SELFPAY ==
--- NOTE | 2024-08-21 12:46 | MM_ITS ---
WS: [id number] BILATERAL 3D TOMOSYNTHESIS DIGITAL SCREENING MAMMOGRAPHY WITH CAD CLINICAL INFORMATION: SCREENING HISTORY: Screening mammogram. No current complaints. COMPARISON: None. TECHNIQUE: Bilateral CC and MLO views. FINDINGS: The breasts are composed of heterogeneous fibroglandular density tissue, which can limit the detectio n of small underlying mass lesions. No suspicious mass, asymmetry, calcifications, or architectural d istortion. No evidence of malignancy. Incidental punctate and lucent centered calcifications. MM/MM [facility] tomosynthesis [id number] IMPRESSION: DENSITY: The breasts are heterogeneously dense, which may obscure small masses. BI-RADS: 2 - Benign FOLLOW UP: 1 Year Follow-up Recommend return to annual screening mammography.
--- NOTE | 2024-08-21 12:46 | XR_ITS ---
WS: [id number] DEXA (DUAL ENERGY X-RAY ABSORPTIOMETRY) Bone mineral density was performed using a [employer] machine. HISTORY: POSTMENOPAUSAL COMPARISON: 01/18/2016 Lumbar spine BMD (L1-L4): 1.128 g/cm2 T score: -0.4 Z score: 0.3 Total hip BMD: Left: 0.920 g/cm2. T score: -0.7 Z score: 0.1 Right: 0.976 g/cm2. T score: -0.2 Z score: 0.5 10 year probability of a major osteoporotic fracture is 16.6%. Compared to the prior study from 01/18/2016. Lumbar spine bone mineral density has decreased by 8.0%. Bilateral hips bone mineral density has decreased by 6.9%. XR/XR DEXA axial skeleton* [id number] IMPRESSION: NORMAL BONE MINERAL DENSITY based upon the WHO classification for females. Significant decrease in bone mineral density within both the lumbar spine and h ips since the prior study.
== END 2024-08-21 12:36 | disposition home or self-care (01) ==
LOC: RAD 12:37
PROVIDERS: PCP Family Medicine; Visit Provider Nurse Practitioner Primary Care
DX: Z12.31 Encounter for screening mammogram for malignant neoplasm of breast (principal); Z78.0 Asymptomatic menopausal state; R92.323 Mammographic fibroglandular density, bilateral breasts; R92.1 Mammographic calcification found on diagnostic imaging of breast
CPT/HCPCS: 77063; 77067; 77080